=== PATIENT | male | born 1990 | race Caucasian/White ===

== ENCOUNTER 2019-05-27 15:15 | Emergency (ER) | payer OTHER ==
[~2019-05-27] VITALS: Ht 182.9 cm; Wt 79.5 kg
[2019-05-27] MEDS ORDERED: ONDANSETRON HCL 4 MG TABLET PO ONE (16:00)
[2019-05-27] MEDS ORDERED: BENZOCAINE/MENTHOL LOZENGE PO ONE (16:00)
[2019-05-27] MEDS ORDERED: ACETAMINOPHEN 500 MG TABLET PO ONE (16:00)
[2019-05-27 17:08] VITALS: BP 152/100
[2019-05-27 17:25] LABS: INFLUENZA TYPE A NEGATIVE FOR TYPE A (NEGATIVE); INFLUENZA TYPE B NEGATIVE FOR TYPE B (NEGATIVE)
== END 2019-05-27 18:00 | disposition home or self-care (01) ==
LOC: EMS 15:20
DX: B34.9 Viral infection, unspecified (principal); F17.210 Nicotine dependence, cigarettes, uncomplicated; Z20.828 Contact with and (suspected) exposure to other viral communicable diseases; Z71.89 Other specified counseling
CPT/HCPCS: 87635; 87804; 99284; 99406; Q0162